=== PATIENT | female | born 1985 | race Two or more races ===

== ENCOUNTER 2019-01-15 05:07 | Inpatient (IN) | payer BC ==
[2019-01-15] MEDS ORDERED: METHYLERGONOVINE 0.2MG/ML AMP IM PRN (06:15)
[2019-01-15] MEDS ORDERED: Ringers Lactate 1,000 ML IV PRN (06:15)
[2019-01-15] MEDS ORDERED: CARBOPROST TROME 250 MCG/ML IM PRN (06:15)
[2019-01-15] MEDS ORDERED: NA CIT/CITRIC AC 30 ML ORAL UDC PO ONE (06:23)
[2019-01-15] MEDS ORDERED: FAMOTIDINE 20 MG/2 ML VIAL IV ONE (06:25)
[2019-01-15] MEDS ORDERED: CEFAZOLIN/SWI 2gm 2 GM/20 ML SYR IV ONE (06:30)
[2019-01-15 06:40] LABS: RPR Titer ND
[2019-01-15 06:42] LABS: Absolute Lymphocytes (CBC) 2.1 K/uL (0.7-4.9); Absolute Monocytes 0.8 K/uL (0.1-1.3); Basophils % 0.5 % (0-1.3); Eosinophils % 1.3 % (0-4.4); Hematocrit 38.9 % (36.0-45.0); Lymphocytes % 23.3 % (15.3-44.8); MPV 10.8 fL (7.6-11.3); Monocytes % 9.1 % (3.3-12.3); RBC Red Blood Cell Count 4.27 M/uL (3.86-4.86)
[2019-01-15 06:52] VITALS: BMI 31.1
[2019-01-15] MEDS ORDERED: Ringers Lactate 1,000 ML IV SCH (07:00)
[2019-01-15] MEDS ORDERED: METOCLOPRAMIDE 10 MG/2mL INJ IV SCH (07:00)
[2019-01-15] MEDS ORDERED: EPHEDRINE SULF 50 MG/ML VIAL ONE (07:08)
[2019-01-15] MEDS ORDERED: MORPHINE SULFATE/PF 1 MG/ML (10 ML AMP) ONE (07:08)
[2019-01-15] MEDS ORDERED: OXYTOCIN 10 UNIT/ML ML IV ONE (07:09)
[2019-01-15] MEDS ORDERED: NS 0.9% VIAL 10 ML ONE (07:10)
[2019-01-15] MEDS ORDERED: ONDANSETRON 4 MG/2 ML VIAL ONE (07:53)
[2019-01-15] MEDS ORDERED: MIDAZOLAM HCL 2 MG/2 ML INJ ONE (07:53)
[2019-01-15] MEDS ORDERED: FENTANYL CITR 250 MCG/5 ML ONE (07:54)
[2019-01-15] MEDS ORDERED: METHYLERGONOVINE 0.2MG/ML AMP IM ONE (07:55)
[2019-01-15] MEDS ORDERED: PROPOFOL 200 MG/20 ML VIAL IV ONE (08:03)
--- NOTE | 2019-01-15 08:51 | PREOPHP ---
Date of Admission: 01/15/2019 History Of Present Illness: A 33-year-old, 2, para 1, scheduled for repeat section tomorrow, comes in an active labor, seen in consultation with Dr. Dial, who diagnosed polyhydramnios a nd suggested delivery at 38 and 6, the patient is now 38 and 5 and in active labor. Family History: Noncontributory. Past Medical History: The patient has no allergies. She has had previous at 30 weeks for placenta previa. She has had no complications during this other than admitting diagnosis of polyhydramnios. Physical Examination: HEENT: Clear. Pupils are equal, round, and reactive to light and accommodation. Conjunctivae well perfused. No oral, lingual, or buccal lesions. Chest and lungs: Clear. Heart: Without murmurs, thrills, heaves, or rubs. Breasts: Not examined. Abdomen: Term size. Extremities: Clear without major edema, cyanosis, or clubbing. Pelvic exam: The patient is 2 cm, kasey every 2 to 3 minutes regularly. FHTs normal, reactive . Preparations are being made for at this time. Anesthesia will see the patient shortly and s he is n.p.o. We will proceed with repeat section expeditiously. SOULEYMANE/MARKO Voice ID: [id number]
--- NOTE | 2019-01-15 09:36 | OP ---
Surgeon: Nestor Curry MD Indications: A 33-year-old 2, para 1, 38 weeks 5 days, history of polyhydramnios, seen in co nsultation with Dr. Bear Santoyo, advised delivery at 38 weeks 6 days. The patient is 35 weeks and 5 days, came in active labor. Full preoperative counseling concerning procedures and possible complica tions including blood loss; anesthetic complications; injury to bladder, bowel, ureter; postoperative complications; clots in legs; pneumonia. The patient knows fully well this does not constitute all the possible problems that could occur during or following the surgery. Anesthesia: Spinal block anesthesia, Dr. Gonzalez' group. Sound Engineering Technician Surgeon: Dr. Alan. Description Of Procedure: Time-out performed after the patient was prepped and draped. Low transvers e uterine incision created over the previous incision site. The incision carried to the fascia. The fascia was incised and incision carried transversely. Anterior fascial plane developed with both bl unt and sharp dissection. Underlying rectus muscle was . Peritoneum entered. Low transver se uterine incision created. An 8-pound, 12-ounce female was delivered without difficulty. Apgars 9 and 9. Very light meconium staining noted. Cord blood specimen obtained. Placenta removed manuall y. Uterus cleared of clot and blood and exteriorized. Cervical os dilated with ring clamp. Uterus closed with a running locked stitch of 1 chromic followed by imbricating stitch of 1 chromic followed by a single [id number] stitch in the left angle for complete hemostasis. Mild uterine hypotonu s, 0.2 mg of Methergine. Estimated blood loss 1100 cc. Gutters clear of clot and blood. Uterus was replaced in peritoneal cavity. Inspection of suture line showed no further bleeding. The muscle wa s reapproximated with 0 Dexon, then the fascia closed with 1 Vicryl running from either angle to the midline. Subcutaneous tissue closed with 2-0 plain. Absorbable tin placed and then metal staple s. The patient had been given 2 g of Ancef. Tolerated all procedures well. She was [facility] to [facility] room in good condition. Final Diagnoses: Term intrauterine at 38 weeks 5 days, repeat section, spinal blo ck anesthesia, mild uterine hypotonus. SOULEYMANE/MARKO Voice ID: [id number] Report ID: [id number]
[2019-01-15] MEDS ORDERED: ONDANSETRON 4 MG/2 ML VIAL IV PRN (11:24)
[2019-01-15] MEDS ORDERED: CEFAZOLIN/SWI 2gm 2 GM/20 ML SYR IV SCH (11:45)
[2019-01-15] MEDS ORDERED: D5LR IV SCH ×2 (12:00)
[2019-01-15] MEDS ORDERED: OXYTOCIN IV SCH ×2 (12:00)
[2019-01-15] MEDS ORDERED: PROMETHAZINE 25 MG/ML VIAL IM ONE (13:51)
[2019-01-15 20:53] LABS: RPR (Rapid Plasma Reagin) NON-REACT (NON-REACT)
[2019-01-16] MEDS ORDERED: OXYTOCIN/LR 20 UNIT/1,000 ML BAG IV ONE (01:23)
[2019-01-16] MEDS ORDERED: ONDANSETRON 4 MG/2 ML VIAL IV PRN (07:17)
[2019-01-16] MEDS ORDERED: KETOROLAC 30 MG/ML INJ IM PRN (07:17)
[2019-01-16] MEDS ORDERED: ONDANSETRON 4 MG (ODT) TAB PO PRN (07:17)
[2019-01-16] MEDS ORDERED: ACETAMINOPHEN 500 MG TAB PO PRN ×2 (07:17)
[2019-01-16] MEDS ORDERED: KETOROLAC 30 MG/ML INJ IV PRN (07:17)
[2019-01-16] MEDS ORDERED: IBUPROFEN 200 MG TAB PO PRN (07:17)
[2019-01-16] MEDS ORDERED: DIPHENHYDRAMINE 25 MG TAB/CAP PO PRN (07:17)
[2019-01-16] MEDS ORDERED: CEFAZOLIN/SWI 1gm 1 GM/10 ML SYR IV SCH (07:17)
[2019-01-16] MEDS ORDERED: BISACODYL 10 MG RECTAL SUPP RECT PRN (07:17)
[2019-01-16] MEDS ORDERED: Oxycodone HCl/Acetaminophen 1 TAB TAB PO PRN (07:17)
[2019-01-16] MEDS: Oxycodone HCl/Acetaminophen 1 TAB TAB PO PRN ×3 (07:50→22:47)
[2019-01-16] MEDS ORDERED: D5LR 1,000 ML with OXYTOCIN 20 UNIT IV SCH ×2 (08:00)
[2019-01-16] MEDS ORDERED: OXYTOCIN/LR 20 UNIT/1,000 ML BAG IV SCH (08:00)
[2019-01-16] MEDS ORDERED: MAGNESIUM HYDROXIDE 8% 30 ML ONE (21:34)
[2019-01-17] MEDS: Oxycodone HCl/Acetaminophen 1 TAB TAB PO PRN ×2 (06:04→10:57)
[2019-01-17] MEDS ORDERED: MAGNESIUM HYDROXIDE 8% 30 ML PO PRN (07:20)
--- NOTE | 2019-01-17 09:36 | DS ---
Hospital Course: A 33-year-old female scheduled for section, Saturday, came in in ac tive labor. Underwent repeat section, spinal block anesthesia. 8-pound 12-ounce female. A pgars 9 and 9. Mild uterine hypotonus. Estimated blood loss 1100 cc. Rh positive, immune to Rubell a. Negative beta strep screen. , afebrile, ambulating, and voiding. Lochia is normal. S he will be dismissed this morning to report back to my office next week for staple removal. To repor t any temperature elevation of 100 degrees or greater, severe pain, heavy bleeding, or any other type of abnormalities. Dismissed with tramadol for analgesia. She has had her Tdap immunizations during her . No post spinal block problems. The patient states that occasionally when she has di scomfort, she begins to shake a little bit and then the pain medicines help alleviate that. So far, there have been no signs of infection, but she knows that if she has any temperature elevation over t he , she is to call back here at [facility]. Final Diagnoses: Intrauterine gestation, 38 weeks 5 days, repeat section. Mild uterine hyp otonus. History of polyhydramnios. Seen in consultation with Dr. Bear Santoyo. SOULEYMANE/MARKO Voice ID: [id number] Report ID: [id number]
[2019-01-17 10:56] VITALS: BP 121/74; TEMP 97
[2019-01-22 02:32] LABS: HBsAG Nonreactive (Nonreactive)
== END 2019-01-17 12:00 | disposition home or self-care (01) | DRG 788 ==
LOC: L&D 05:07 → 2ND-WC 06:01
PROVIDERS: ADMIT Specialist; ATTEND Specialist
PROC: 10D00Z1 Extraction of Products of Conception, Low, Open Approach (ICD-10-PCS; principal; 2019-01-15 07:00)
DX: O40.3XX0 Polyhydramnios, third trimester, not applicable or unspecified (principal); O34.211 Maternal care for low transverse scar from previous cesarean delivery; N85.8 Other specified noninflammatory disorders of uterus; O62.2 Other uterine inertia; Z3A.38 38 weeks gestation of pregnancy; Z37.0 Single live birth
CPT/HCPCS: 36415; 85014; 85025; 86592; 86850; 86900; 86901; 87340; 88307; J0690; J2210; J2250; J2405; J2550; J2590; J2704; J2765; J3010